=== PATIENT | female | born 1980 ===

== ENCOUNTER 2017-07-14 16:39 | Emergency (ER) | payer MEDICAID, OTHER ==
--- NOTE | 2017-07-14 18:06 | ED PDOC ---
Arrival/HPI - General Chief Complaint: Flu-like Symptoms Time Seen by Provider: 07/14/17 16:56 Historian: Patient EM Caveat: Unstable Vital Signs - History of Present Illness Narrative History of Present Illness (Text): 07/14/17 18:03 Pt is a 37 yo F c/o flu-like symptoms since last night. States she began to have severe chills and sweating at night followed by fever, cough, headache, and body aches. Pt reports eating and drinking yesterday but has not had much today and has no passed urine in some time. Pt took a tylenol at 16:30 today. Denies sob, cp, nausea, vomiting, diarrhea or syncope. 07/14/17 19:21 Time/Duration: Prior to Arrival Symptom Onset: Gradual Symptom Course: Unchanged, Worsening Quality: Aching Severity Level: Mild, Moderate Activities at Onset: Rest, Light Context: Home, Work Past Medical History - Provider Review Nursing Documentation Reviewed: Yes - Travel History Have you recently traveled outside [place] w/in the past 3 mons?: No - Past History Past History: No Previous - Infectious Disease Hx of Infectious Diseases: None - Tetanus Immunization Tetanus Immunization: Unknown - Reproductive Currently : No - Past Medical History Past Medical History: No Previous - Cardiac Hx Cardiac Disorders: No - Pulmonary Hx Respiratory Disorders: No - Neurological Hx Neurological Disorder: No - HEENT Hx HEENT Disorder: No - Renal Hx Renal Disorder: No - Endocrine/Metabolic Hx Endocrine Disorders: No - Hematological/Oncological Hx Blood Disorders: No - Integumentary Hx Dermatological Disorder: No - Musculoskeletal/Rheumatological Hx Musculoskeletal Disorders: No - Gastrointestinal Hx Gastrointestinal Disorders: No - Genitourinary/Gynecological Hx Genitourinary Disorders: No Family/Social History - Physician Review Nursing Documentation Reviewed: Yes Family/Social History: Unknown Family HX Smoking Status: Smoker Currrent Status Unknown Hx Alcohol Use: No Hx Substance Use: No Allergies/Home Meds Allergies/Adverse Reactions: Allergies No Known Allergies Allergy (Verified 07/14/17 18:19) Review of Systems - Physician Review All systems were reviewed & negative as marked: Yes - Review of Systems Systems not reviewed;Unavailable: Unstable Vital Signs Constitutional: Fatigue, Fevers Eyes: Normal ENT: Normal Respiratory: Cough Cardiovascular: Normal Gastrointestinal: Diarrhea, Appetite Changes Genitourinary Female: Urine Output Changes Musculoskeletal: Normal Skin: Normal Neurological: Normal Endocrine: Normal Hemo/Lymphatic: Normal Psychiatric: Normal Physical Exam Vital Signs Reviewed: Yes Vital Signs Temp Pulse Resp BP Pulse Ox 07/14/17 21:58 98.9 F 71 18 120/73 95 07/14/17 20:59 99.7 F H 07/14/17 19:47 101.3 F H 78 18 110/65 99 07/14/17 18:16 98.9 F 83 18 104/64 100 Temperature: Febrile Blood Pressure: Normal Pulse: Regular Respiratory Rate: Normal Appearance: Positive for: Ill-Appearing, Uncomfortable Pain Distress: Mild Mental Status: Positive for: Alert and Oriented X 3 - Systems Exam Head: Present: Atraumatic, Normocephalic Pupils: Present: PERRL Extroacular Muscles: Present: EOMI Conjunctiva: Present: Normal Ears: Present: Normal Mouth: Present: Moist Mucous Membranes Pharnyx: Present: Normal. No: ERYTHEMA, EXUDATE, TONSILS ENLARGED, Peritonsilar Swelling, Uvular Deviation, Muffled/Hoarse Voice, Strider, Soft Palate/Uvular Edema, Other Nose (Internal): Present: Normal Inspection, Rhinorrhea (clear dc) Neck: Present: Normal Range of Motion Respiratory/Chest: Present: Clear to Auscultation, Good Air Exchange. No: Respiratory Distress, Accessory Muscle Use, Wheezes, Decreased Breath Sounds, Rales, Retracting, Rhonchi, Tachypneic, Tender to Palpation, Other Cardiovascular: Present: Regular Rate and Rhythm, Normal S1, S2. No: Murmurs Abdomen: Present: Normal Bowel Sounds. No: Tenderness, Distention, Peritoneal Signs, Rebound, Guarding, McBurney's Point Tender, Rovsing's Sign Present, Hernias, Feeding Tubes, Ostomy Tubes, Mass/Organomegaly, Scars, Other Back: Present: Normal Inspection Upper Extremity: Present: Normal Inspection. No: Cyanosis, Edema Lower Extremity: Present: Normal Inspection. No: Edema Neurological: Present: GCS=15, CN II-XII Intact, Speech Normal Skin: Present: Warm, Dry, Normal Color. No: Rashes Psychiatric: Present: Alert, Oriented x 3, Normal Insight, Normal Concentration Medical Decision Making ED Course and Treatment: 07/14/17 19:22 Impression: Pt is a 37 yo F c/o flu-like symptoms since last night. Pt has not eaten or drunk fluids x 1 day, therefore dehydrated Plan: IVF 1L bolus cbc, cmp, ua, cxr tylenol po for fever rapid flu test Progress: Pt reports passing urine and now has diarrhea, colored yellow. No associated pain or nausea with diarrhea; Rapid flu NEG Pt complaining of rinorrhea now; pt insistent on antibiotics although no indication for such Tylenol 325mg given x 2 to control fever Advised to rest and drink plenty of fluids, note for work VSS and pt ambulated well out of ED 07/14/17 20:30 07/15/17 13:22 Re-evaluation Time: 20:15 (febrile) Reassessment Condition: Improved - Lab Interpretations Lab Results: 07/14/17 18:36 07/14/17 18:36 Lab Results 07/14/17 18:54: Influenza Typ A,B (EIA) Negative for flu a/b 07/14/17 18:37: Urine Color Yellow, Urine Appearance Clear, Urine pH 6.5, Ur Specific Shannon <= 1.005, Urine Protein Negative, Urine Glucose (UA) Negative, Urine Ketones 40 H, Urine Blood Negative, Urine Nitrate Negative, Urine Bilirubin Negative, Urine Urobilinogen 0.2, Ur Leukocyte Esterase Negative 07/14/17 18:36: Sodium 138, Potassium 4.0, Chloride 104, Carbon Dioxide 26, Anion Gap 11, BUN 6 L, Creatinine 0.6 L, Est GFR ( Amer) > 60, Est GFR ( Non-Af Amer) > 60, Random Glucose 97, Calcium 9.4, Total Bilirubin 1.0, AST 98 H , ALT 110 H, Alkaline Phosphatase 66, Total Protein 7.1, Albumin 4.1, Globulin 3.0, Albumin/Globulin Ratio 1.3 07/14/17 18:36: WBC 3.6 L, RBC 4.29, Hgb 13.9, Hct 40.7, MCV 94.9, MCH 32.4, MCHC 34.2, RDW 12.3, Plt Count 194, MPV 9.9, Gran % 76.4 H, Lymph % (Auto) 13.3 L, Levy % (Auto) 10.0 H, Eos % (Auto) 0.0 L, Baso % (Auto) 0.3, Gran # 2.76, Lymph # 0.5 L, Levy # 0.4, Eos # 0.0, Baso # 0.01 I have reviewed the lab results: Yes (Neg for flu A and B) Interpretation: All labs normal - RAD Interpretation Narrative RAD Interpretations (Text): 07/15/17 13:22 No active disease appreciated on CXR Radiology Orders: 07/14/17 21:03 CXR [CHEST TWO VIEWS (PA/LAT)] [RAD] Stat - Medication Orders Current Medication Orders: Discontinued Medications Acetaminophen (Tylenol 325mg Tab) 325 mg PO STAT STA Stop: 07/14/17 19:45 Last Admin: 07/14/17 20:33 Dose: Acetaminophen (Tylenol 325mg Tab) 650 mg PO STAT STA Stop: 07/14/17 20:15 Last Admin: 07/14/17 20:16 Dose: 650 mg Sodium Chloride (Sodium Chloride 0.9%) 1,000 mls @ 999 mls/hr IV .Q1H1M STA Stop: 07/14/17 19:27 Last Admin: 07/14/17 18:28 Dose: 999 mls/hr eMAR Start Stop Document 07/14/17 18:28 OCS (Rec: 07/14/17 18:28 [facility] [id number] Intravenous Solution Start Date 07/14/17 Start Time 18:28 End Date 07/14/17 End time 19:29 Total Infusion Time 61 Disposition/Present on Arrival - Present on Arrival Any Indicators Present on Arrival: Yes History of DVT/PE: No History of Uncontrolled Diabetes: No Urinary Catheter: No - Disposition Have Diagnosis and Disposition been Completed?: Yes Diagnosis: Fever, Cough, Upper respiratory infection Disposition: HOME/ ROUTINE Disposition Time: 21:30 (07/14/17) Patient Plan: Discharge Condition: STABLE Discharge Instructions (ExitCare): Fever in Adults (ED), Upper Respiratory Infection (ED) Additional Instructions: Dear patient, We recommend that you get plenty of rest and fluids as you recover. Should you develop severe fever again, or devlop signs of an infection, return to the emergency department for evaluation. See your doctor in the next few days. Prescriptions: Benzonatate [Tessalon Perle] 100 mg PO Q8 5 Days #15 capsule Ibuprofen [Motrin Tab] 400 mg PO Q6 5 Days #20 tab Referrals: PCP,NO [Primary Care Provider] - Follow up with primary Forms: [facility] (Nepalese), WORK NOTE
[2017-07-14 18:16] VITALS: BMI 23.6
[2017-07-14] MEDS ORDERED: Sodium Chloride 0.9% 1,000 ML IV STA (18:27)
[2017-07-14 18:53] VITALS: RESP 18
[2017-07-14 18:56] LABS: PH,URINE 6.5 (4.7-8.0); URINE BILIRUBIN NEGATIVE (NEGATIVE); URINE BLOOD NEGATIVE (NEGATIVE); URINE GLUCOSE (UA) NEGATIVE (NEGATIVE); URINE LEUKOCYTE ESTERASE NEGATIVE Leu/uL (NEGATIVE); URINE NITRATE NEGATIVE (NEGATIVE); URINE PROTEIN NEGATIVE mg/dL (<30 mg/dL); URINE UROBILINOGEN 0.2 E.U./dL (<1 E.U./dL)
[2017-07-14 19:01] LABS: URINE APPEARANCE CLEAR (CLEAR); URINE COLOR YELLOW (YELLOW)
[2017-07-14 19:05] LABS: ALB/GLOB RATIO 1.3 (1.1-1.8); ALBUMIN 4.1 g/dL (3.0-4.8); ALT/SGPT 110 U/L (7-56); AST/SGOT 98 U/L (14-36); BLOOD UREA NITROGEN 6 mg/dL (7-21); CALCIUM 9.4 mg/dL (8.4-10.5); GFR AFRICAN-AMERICAN > 60; GFR NON-AFRICAN AMERICAN > 60
[2017-07-14 19:08] LABS: BASO # 0.01 K/mm3 (0.0-2.0); BASO % 0.3 % (0.0-3.0); GRAN # 2.76 (1.4-6.5); GRAN % 76.4 % (50.0-68.0); HEMOGLOBIN 13.9 g/dL (12.0-16.0); LYMPH # 0.5 (1.2-3.4); LYMPH % 13.3 % (22.0-35.0); MEAN CELL VOLUME 94.9 fl (80.0-105.0); MEAN CORPUSCULAR HEMOGLOBIN 32.4 pg (25.0-35.0); MEAN CORPUSCULAR HGB CONC 34.2 g/dl (31.0-37.0); MEAN PLATELET VOLUME 9.9 fl (7.0-11.0); MONO # 0.4 (0.1-0.6); RBC 4.29 10^6/uL (3.5-6.1); RED CELL DISTRIBUTION WIDTH 12.3 % (11.5-14.5); WHITE BLOOD COUNT 3.6 10^3/ul (4.5-11.0)
[2017-07-14 22:46] VITALS: BP 120/73; PULSE 71; TEMP 98.9; O2SAT 95
--- NOTE | 2017-07-15 08:29 | RAD ---
HISTORY: cough COMPARISON: No prior. TECHNIQUE: Chest PA and lateral FINDINGS: LUNGS: No active pulmonary disease. PLEURA: No significant pleural effusion identified. No pneumothorax apparent. CARDIOVASCULAR: Normal. OSSEOUS STRUCTURES: No significant abnormalities. VISUALIZED UPPER ABDOMEN: Normal. OTHER FINDINGS: None. IMPRESSION: No active disease.
== END 2017-07-14 22:36 | disposition home or self-care (01) ==
LOC: ED 16:39
DX: J06.9 Acute upper respiratory infection, unspecified (principal); R50.9 Fever, unspecified; R05 Cough; F17.210 Nicotine dependence, cigarettes, uncomplicated
CPT/HCPCS: 71046; 80053; 81003; 85025; 87804; 96360; 99283; J7040